=== PATIENT | male | born 1980 | race African-American/Black ===

== ENCOUNTER 2022-09-05 21:42 | Emergency (ER) | payer OTHER ==
[2022-09-05 21:48] VITALS: BP 136/88; PULSE 77; RESP 20; TEMP 98.2; BMI 35.6
[2022-09-05] MEDS ORDERED: KETOROLAC TROMETHAMINE 30 MG/1 ML VIAL IM ONE (23:02)
[2022-09-05] MEDS ORDERED: diazePAM 5 MG TABLET PO ONE (23:02)
[2022-09-05] MEDS ORDERED: LIDOCAINE 5% TOPICAL PATCH ONE (23:03)
[2022-09-05] MEDS ORDERED: LIDOCAINE 5% TOPICAL PATCH TP ONE (23:03)
[2022-09-05] MEDS ORDERED: diazePAM 5 MG TABLET ONE (23:04)
[2022-09-05] MEDS ORDERED: KETOROLAC TROMETHAMINE 30 MG/1 ML VIAL ONE (23:04)
[2022-09-06] MEDS ORDERED: LIDOCAINE PATCH REMOVAL MC ONE (11:00)
== END 2022-09-06 01:31 | disposition home or self-care (01) ==
LOC: JER 21:42 → JERFT 21:42 → JER 09-06 01:31
PROC: 3E0233Z Introduction of Anti-inflammatory into Muscle, Percutaneous Approach (ICD-10-PCS; principal; 2022-09-05)
DX: M54.2 Cervicalgia (principal); M54.50 Low back pain, unspecified; M25.511 Pain in right shoulder; V43.52XA Car driver injured in collision with other type car in traffic accident, initial encounter
CPT/HCPCS: 72050-TC-FY; 72100-TC-FY; 73030-TC-RT-FY; 99285-25

== ENCOUNTER 2022-10-18 16:12 | Inpatient (IN) | payer OTHER ==
[2022-10-18 19:57] LABS: BASO % 0.4 % (0-2.0); EOS % 0.1 % (0-4.5); HEMATOCRIT 58.2 % (35.4-49); HEMOGLOBIN 19.3 GM/dL (11.7-16.9); LYMPH % 7.2 % (8-40); MCH 32.5 pg (25.7-33.7); MCHC 33.2 g/dl (32.0-35.9); MEAN CELL VOLUME 97.7 fl (80-96); MEAN PLT VOLUME 11.2 fl (7.5-11.1); MONO % 5.6 % (3.8-10.2); NEUT % 86.7 % (42.8-82.8); PLATELET COUNT 300 10^3/uL (134-434); RBC 5.95 M/mm3 (4.00-5.60); RDW 12.3 % (11.9-15.9); WHITE BLOOD COUNT 10.6 K/mm3 (4.0-10.0)
[2022-10-18 20:05] LABS: VENOUS BASE EXCESS -14.2 mmol/L (-2-2); VENOUS O2 SATURATION 90.6 % (70-80); VENOUS PCO2 35.7 mmHg (38-52)
[2022-10-18] MEDS ORDERED: SODIUM CHLORIDE 0.9% 500 ML INFUS.BAG IV ONE (20:06)
[2022-10-18 20:15] LABS: VENOUS PH 7.18 (7.310-7.410)
[2022-10-18 20:17] LABS: CHLORIDE 99 mmol/L (98-107); SODIUM 136 mmol/L (136-145)
[2022-10-18 20:19] LABS: ALBUMIN 5.1 g/dl (3.4-5.0); BLOOD UREA NITROGEN 42.2 mg/dL (7-18); CALCIUM 11.2 mg/dL (8.5-10.1); CO2 14 mmol/L (21-32); MAGNESIUM 3.1 mg/dL (1.8-2.4)
[2022-10-18 20:22] LABS: SGOT/AST 9 U/L (15-37); SGPT/ALT 45 U/L (13-61)
[2022-10-18 20:24] LABS: TOT PROT 9.4 g/dl (6.4-8.2)
[2022-10-18 20:25] LABS: ALK PHOS 103 U/L (45-117)
[2022-10-18 20:28] LABS: ANION GAP 23 MMOL/L (8-16); GLUCOSE,RANDOM 1015 mg/dL (74-106)
[2022-10-18] MEDS ORDERED: CALCIUM GLUCONATE 10% - 1,000 MG/10 ML VIAL IVPB ONE (20:29)
[2022-10-18] MEDS ORDERED: SODIUM BICARBONATE 8.4% 50 MEQ/50 ML VIAL IVPUSH ONE (20:31)
[2022-10-18] MEDS ORDERED: INSULIN REGULAR HUMAN 100 UNITS/ML *VIAL* (FOR IVP) IVPUSH ONE (20:34)
[2022-10-18] MEDS ORDERED: CALCIUM GLUCONATE 10% - 1,000 MG/10 ML VIAL ONE (20:43)
[2022-10-18] MEDS ORDERED: SODIUM BICARBONATE 8.4% - 50 ML ONE (20:44)
[2022-10-18] MEDS ORDERED: INSULIN REGULAR 100 UNITS in SODIUM CHLORIDE 99 ML IVPB SCH (20:45)
[2022-10-18] MEDS ORDERED: INSULIN REGULAR HUMAN 100 UNITS/ML *VIAL IVPUSH ONE ×2 (20:51→22:57)
[2022-10-18 21:03] LABS: EPI CELLS 13 /uL (0-25.1); HYALINE CASTS 1 /uL (0-3.1); URINE APPEARANCE CLEAR; URINE BACTERIA 3 /uL (0-1359); URINE BILIRUBIN NEGATIVE (NEGATIVE); URINE COLOR YELLOW; URINE GLUCOSE (UA) 3+ (NEGATIVE); URINE KETONE 1+ (NEGATIVE); URINE LEUK ESTERASE NEGATIVE (NEGATIVE); URINE NITRITE NEGATIVE (NEGATIVE); URINE PROTEIN 2+ (NEGATIVE); URINE RBC 27 /uL (0-23.9); URINE UROBILINOGEN 0.2 mg/dL (0.2-1.0); URINE WBC 13 /uL (0-25.8)
[2022-10-18] MEDS ORDERED: DEXTROSE 50%-WATER - 25 GM/50 ML VIAL IVPUSH PRN (21:57)
[2022-10-18] MEDS ORDERED: ONDANSETRON 4 MG/2 ML VIAL IVPUSH PRN (21:58)
[2022-10-18] MEDS ORDERED: CHLORHEXIDINE GLUCONATE 4% CLEANSER FOR DECOLONIZATION TP SCH (22:00)
[2022-10-18] MEDS ORDERED: SODIUM CHLORIDE 0.45% 1,000 ML IV SCH (22:00)
[2022-10-18] MEDS ORDERED: SODIUM CHLORIDE 1,000 ML IV STA (22:13)
[2022-10-18] MEDS ORDERED: ALBUTEROL SO4 0.5 % INH SOLN 2.5 MG/0.5 ML VIAL.NEB. NEB PRN (22:24)
[2022-10-18] MEDS ORDERED: ACETAMINOPHEN 500 MG TABLET (FP) PO PRN (22:24)
[2022-10-18] MEDS ORDERED: IBUPROFEN 400 MG TABLET (FP) PO PRN (22:25)
[2022-10-18] MEDS: MUPIROCIN 2% TOPICAL OINTMENT FOR DECOLONIZATION NS SCH (22:58)
[2022-10-18] MEDS: INSULIN REGULAR 100 UNITS in SODIUM CHLORIDE 99 ML IVPB SCH (22:58)
[2022-10-19] MEDS ORDERED: KETAMINE HCL 200 MG/20 ML VIAL IVPUSH PRN (00:53)
[2022-10-19 01:29] LABS: CHLORIDE 119 mmol/L (98-107); SODIUM 152 mmol/L (136-145)
[2022-10-19 01:33] LABS: ANION GAP 14 MMOL/L (8-16); BLOOD UREA NITROGEN 36.8 mg/dL (7-18); CALCIUM 11.3 mg/dL (8.5-10.1); CO2 19 mmol/L (21-32)
[2022-10-19 01:37] LABS: CREATININE 2.3 mg/dL (0.55-1.3)
[2022-10-19] MEDS ORDERED: SODIUM CHLORIDE 0.45% 1,000 ML with POTASSIUM CHLORIDE 40 MEQ IV SCH (01:45)
[2022-10-19 02:10] VITALS: BMI 31.3
[2022-10-19 02:10] LABS: GLUCOSE,RANDOM 402 mg/dL (74-106)
[2022-10-19] MEDS: INSULIN REGULAR 100 UNITS in SODIUM CHLORIDE 99 ML IVPB SCH ×2 (04:40)
[2022-10-19] MEDS ORDERED: D5-1/2NS+40 MEQ KCL - 40 MEQ/1,000 ML INFUS.BAG IV SCH ×2 (05:00→18:55)
[2022-10-19 05:54] LABS: HEMATOCRIT 37.2 % (35.4-49); HEMOGLOBIN 12.7 GM/dL (11.7-16.9); MCH 32.3 pg (25.7-33.7); MCHC 34.1 g/dl (32.0-35.9); MEAN CELL VOLUME 94.9 fl (80-96); MEAN PLT VOLUME 10.8 fl (7.5-11.1); PLATELET COUNT 178 10^3/uL (134-434); RBC 3.92 M/mm3 (4.00-5.60); RDW 11.7 % (11.9-15.9); WHITE BLOOD COUNT 7.9 K/mm3 (4.0-10.0)
[2022-10-19 08:02] LABS: CALCIUM 10.9 mg/dL (8.5-10.1)
[2022-10-19 08:03] LABS: BLOOD UREA NITROGEN 33.2 mg/dL (7-18)
[2022-10-19 09:28] LABS: BILIRUBIN,TOTAL 0.8 mg/dL (0.2-1); TOT PROT 7.6 g/dl (6.4-8.2)
[2022-10-19 09:29] LABS: ALBUMIN 4.1 g/dl (3.4-5.0)
[2022-10-19] MEDS ORDERED: INSULIN (LEVEMIR) 100 UNITS/ML UNITS SQ SCH ×2 (09:45→22:00)
[2022-10-19] MEDS ORDERED: ENOXAPARIN NA (PORCINE) 40 MG/0.4 ML DISP.SYRIN SQ SCH (10:00)
[2022-10-19] MEDS ORDERED: PANTOPRAZOLE 40 MG TABLET PO SCH (10:00)
[2022-10-19] MEDS: MUPIROCIN 2% TOPICAL OINTMENT FOR DECOLONIZATION NS SCH (10:40)
[2022-10-19] MEDS: INSULIN (NOVOLOG) ASPART 100 UNITS/ML 10ML VIAL SQ SCH ×2 (10:56→17:06)
[2022-10-19] MEDS: INSULIN SLIDING SCALE (NOVOLOG) 1 VIAL SQ SCH ×2 (10:56→17:06)
[2022-10-19 12:47] LABS: BLOOD UREA NITROGEN 28.1 mg/dL (7-18); CALCIUM 10.4 mg/dL (8.5-10.1)
[2022-10-19 12:51] LABS: CREATININE 1.7 mg/dL (0.55-1.3)
[2022-10-19 12:53] LABS: BILIRUBIN,TOTAL 0.8 mg/dL (0.2-1); TOT PROT 7.3 g/dl (6.4-8.2)
[2022-10-19] MEDS ORDERED: DEXTROSE 50%-WATER - 25 GM/50 ML VIAL IVPUSH PRN (18:55)
[2022-10-19] MEDS ORDERED: ONDANSETRON 4 MG/2 ML VIAL IVPUSH PRN ×2 (18:55→19:44)
[2022-10-19] MEDS ORDERED: INSULIN REGULAR 100 UNITS in SODIUM CHLORIDE 99 ML IVPB SCH ×2 (18:55→19:44)
[2022-10-19] MEDS ORDERED: ALBUTEROL SO4 0.5 % INH SOLN 2.5 MG/0.5 ML VIAL.NEB. NEB PRN ×2 (18:55→19:44)
[2022-10-19] MEDS ORDERED: ACETAMINOPHEN 500 MG TABLET (FP) PO PRN ×2 (18:55→19:44)
[2022-10-19] MEDS ORDERED: DEXTROSE 50%-WATER 25 GM/50 ML DISP.SYRIN IVPUSH PRN (19:44)
[2022-10-19] MEDS: INSULIN (LEVEMIR) 100 UNITS/ML UNITS SQ SCH (21:34)
[2022-10-20] MEDS: D5-1/2NS+40 MEQ KCL - 40 MEQ/1,000 ML INFUS.BAG IV SCH ×2 (00:20→06:07)
[2022-10-20] MEDS ORDERED: INSULIN (NOVOLOG) ASPART 100 UNITS/ML 10ML VIAL ONE (05:55)
[2022-10-20] MEDS: INSULIN (NOVOLOG) ASPART 100 UNITS/ML 10ML VIAL SQ SCH ×5 (06:14→17:49)
[2022-10-20] MEDS: INSULIN SLIDING SCALE (NOVOLOG) 1 VIAL SQ SCH ×3 (06:15→17:49)
[2022-10-20] MEDS: INSULIN (LEVEMIR) 100 UNITS/ML UNITS SQ SCH ×2 (06:27→21:54)
[2022-10-20] MEDS ORDERED: INSULIN (NOVOLOG) ASPART 100 UNITS/ML 10ML VIAL SQ SCH (07:00)
[2022-10-20] MEDS ORDERED: INSULIN SLIDING SCALE (NOVOLOG) 1 VIAL SQ SCH (07:00)
[2022-10-20] MEDS ORDERED: INSULIN (LEVEMIR) 100 UNITS/ML UNITS SQ ONE (07:23)
[2022-10-20] MEDS ORDERED: INSULIN (LEVEMIR) 100 UNITS/ML UNITS SQ SCH (08:41)
[2022-10-20] MEDS: PANTOPRAZOLE 40 MG TABLET PO SCH (09:07)
[2022-10-20] MEDS: ENOXAPARIN NA (PORCINE) 40 MG/0.4 ML DISP.SYRIN SQ SCH (09:08)
[2022-10-20] MEDS ORDERED: ENOXAPARIN NA (PORCINE) 40 MG/0.4 ML DISP.SYRIN SQ SCH (10:00)
[2022-10-20] MEDS ORDERED: PANTOPRAZOLE 40 MG TABLET PO SCH (10:00)
[2022-10-20 10:10] LABS: HEMATOCRIT 44.3 % (35.4-49); HEMOGLOBIN 15.2 GM/dL (11.7-16.9); MCH 32.2 pg (25.7-33.7); MCHC 34.3 g/dl (32.0-35.9); MEAN CELL VOLUME 93.8 fl (80-96); MEAN PLT VOLUME 10.9 fl (7.5-11.1); PLATELET COUNT 197 10^3/uL (134-434); RBC 4.73 M/mm3 (4.00-5.60); RDW 11.9 % (11.9-15.9); WHITE BLOOD COUNT 7.2 K/mm3 (4.0-10.0)
[2022-10-20 10:39] LABS: ALBUMIN 3.4 g/dl (3.4-5.0)
[2022-10-20 10:41] LABS: BLOOD UREA NITROGEN 22.5 mg/dL (7-18); MAGNESIUM 1.8 mg/dL (1.8-2.4)
[2022-10-20 10:43] LABS: BILIRUBIN,TOTAL 1.8 mg/dL (0.2-1); CREATININE 1.4 mg/dL (0.55-1.3); PHOSPHOROUS 1.7 mg/dL (2.5-4.9); TOT PROT 6.3 g/dl (6.4-8.2)
[2022-10-20 10:48] LABS: CALCIUM 9.3 mg/dL (8.5-10.1)
[2022-10-20 12:46] VITALS: RESP 18
[2022-10-21] MEDS: INSULIN (LEVEMIR) 100 UNITS/ML UNITS SQ SCH ×2 (06:39→22:39)
[2022-10-21] MEDS: INSULIN SLIDING SCALE (NOVOLOG) 1 VIAL SQ SCH ×3 (06:40→17:02)
[2022-10-21] MEDS ORDERED: INSULIN (NOVOLOG) ASPART 100 UNITS/ML 10ML VIAL SQ SCH (07:00)
[2022-10-21] MEDS: PANTOPRAZOLE 40 MG TABLET PO SCH (10:23)
[2022-10-21] MEDS: ENOXAPARIN NA (PORCINE) 40 MG/0.4 ML DISP.SYRIN SQ SCH (10:23)
[2022-10-21] MEDS: INSULIN (NOVOLOG) ASPART 100 UNITS/ML 10ML VIAL SQ SCH ×2 (11:27→17:02)
[2022-10-21] MEDS ORDERED: FAMOTIDINE 20 MG/50 ML IVPB 20 MG/50 ML MG IVPB ONE (11:30)
[2022-10-21] MEDS: BENZOCAINE/MENTHOL 1 EACH LOZENGE MM PRN ×2 (13:07→22:51)
[2022-10-22] MEDS: INSULIN (LEVEMIR) 100 UNITS/ML UNITS SQ SCH (06:33)
[2022-10-22] MEDS: INSULIN (NOVOLOG) ASPART 100 UNITS/ML 10ML VIAL SQ SCH ×3 (06:35→17:08)
[2022-10-22] MEDS: INSULIN SLIDING SCALE (NOVOLOG) 1 VIAL SQ SCH ×3 (06:36→17:09)
[2022-10-22] MEDS ORDERED: INSULIN (NOVOLOG) ASPART 100 UNITS/ML 10ML VIAL ONE (08:41)
[2022-10-22] MEDS ORDERED: INSULIN (LEVEMIR) 100 UNITS/ML UNITS SQ ONE (08:41)
[2022-10-22] MEDS: PANTOPRAZOLE 40 MG TABLET PO SCH (09:53)
[2022-10-22] MEDS: ENOXAPARIN NA (PORCINE) 40 MG/0.4 ML DISP.SYRIN SQ SCH (09:53)
[2022-10-22 16:24] VITALS: BP 129/82; PULSE 80; TEMP 97.4
[2022-10-22] MEDS ORDERED: INSULIN (LEVEMIR) 100 UNITS/ML UNITS SQ SCH ×2 (22:00)
== END 2022-10-22 18:26 | disposition home or self-care (01) | DRG 420 ==
LOC: JER 16:12 → JERBED 20:53 → JICU 22:13 → J8W 10-19 19:37
PROVIDERS: ADMIT Internal Medicine Pulmonary Disease; ATTEND Internal Medicine
DX: E11.10 Type 2 diabetes mellitus with ketoacidosis without coma (principal); E87.0 Hyperosmolality and hypernatremia; N17.9 Acute kidney failure, unspecified; E87.5 Hyperkalemia; E86.0 Dehydration
CPT/HCPCS: 0241U-QW; 36415; 71045-TC-FY; 80048; 80053; 81003; 82010; 82310; 82803; 82962; 83036; 83735; 83970; 84100; 84484; 85025; 85027; 87086; 93005; 93010; 99291

== ENCOUNTER 2024-12-18 11:29 | Emergency (ER) | payer OTHER ==
[2024-12-18 11:36] VITALS: BP 147/76; PULSE 78; RESP 20; TEMP 97.9; BMI 34.0
== END 2024-12-18 13:57 | disposition home or self-care (01) ==
LOC: JERFT 11:29
PROC: 2W3JX1Z Immobilization of Right Finger using Splint (ICD-10-PCS; principal; 2024-12-18)
DX: S62.521A Displaced fracture of distal phalanx of right thumb, initial encounter for closed fracture (principal); M25.562 Pain in left knee; W18.30XA Fall on same level, unspecified, initial encounter; Y93.67 Activity, basketball
CPT/HCPCS: 73130-TC-RT-FY; 73562-TC-LT-FY; 73610-TC-LT-FY; 99284-25